=== PATIENT | female | born 1970 | race Caucasian/White ===

== ENCOUNTER 2018-02-20 07:31 | Day surgery (SDC) | payer OTHER ==
[2018-02-19 14:12] VITALS: BMI 48.9
[2018-02-20] MEDS ORDERED: Oxymetazoline HCl 0.05% ( 15 ML ) ONE ×2 (08:23→09:10)
[2018-02-20] MEDS ORDERED: Bacitracin Zinc Ointment 30 gm TUBE ONE (09:10)
[2018-02-20] MEDS ORDERED: Lidocaine 1% w/Epinephrine 1:100K 30 ML VIAL ONE (09:10)
[2018-02-20] MEDS ORDERED: Albuterol Sulfate HFA (OR ONLY) ONE (09:36)
[2018-02-20] MEDS ORDERED: Fentanyl 100 MCG/2 ML VIAL ONE ×3 (09:41→11:05)
[2018-02-20] MEDS ORDERED: Hydrocodone-Acetamin 15 ML UDCUP ONE (12:54)
[2018-02-20] MEDS ORDERED: Labetalol HCl 100 MG/20 ML VIAL ONE (14:41)
[2018-02-20] MEDS ORDERED: Dexamethasone 20 MG/5 ML VIAL ONE (14:41)
[2018-02-20] MEDS ORDERED: Lidocaine 1% PF 5 ML VIAL ONE (14:41)
[2018-02-20] MEDS ORDERED: Succinylcholine Chloride 20 MG/ML 10 ml SYRINGE FS ONE (14:41)
[2018-02-20] MEDS ORDERED: PROPOFOL 200 MG/20 ML VIAL ONE (14:41)
--- NOTE | 2018-02-21 10:00 | OP ---
DATE OF PROCEDURE: 02/23/2018 PREOPERATIVE DIAGNOSES: 1. Chronic rhinosinusitis. 2. Nasal septal deviation. 3. Bilateral inferior turbinate hypertrophy. 4. Nasal obstruction. POSTOPERATIVE DIAGNOSES: 1. Chronic rhinosinusitis. 2. Nasal septal deviation. 3. Bilateral inferior turbinate hypertrophy. 4. Nasal obstruction. PROCEDURES: 1. Bilateral endoscopic sinus surgery, total ethmoidectomies. 2. Bilateral endoscopic sinus surgery, maxillary antrostomies. 3. Bilateral endoscopic sinus surgery, frontal sinusotomy. 4. Bilateral endoscopic sinus surgery, sphenoidotomies. 5. Nasal septoplasty. 6. Bilateral inferior turbinate submucosal resection. SURGEON: Hu Capellan M.D. ESTIMATED BLOOD LOSS: 50 mL. COMPLICATIONS: None. ANESTHESIA: GETA. PROCEDURE IN DETAIL: Patient was taken to the operating room and placed supine on the table. General endotracheal anesthesia was obtained by the Anesthesia staff. Tube was secured in the left lower lip . Patient was then placed in the beach chair position, and Afrin pledgets were placed in the nasal ca vity. Injections of 1% lidocaine with 1:100,000 epinephrine were made into the nasal septum as well a s the inferior turbinates. Patient was then prepped and draped in standard surgical fashion for nasal surgery. Following this, the Afrin pledgets were removed. A [place] incision was made on the left na jeffery septum. Submucoperichondrial dissection was performed. The deviated portions of the septum includ ed portions of the cartilage and the bony septum. These isolated areas were removed using three cutti ng rongeurs. There was noted to be a large dorsal and caudal strut, left intact for support of the no se. The mucoperichondrial flaps were then reapproximated using a 4-0 gut stitch. Any straight pieces of cartilage were crushed prior to this and placed between the mucoperichondrial flaps. Following thi s, the inferior turbinates were then punctured with a submucosal coblation wand, and submucosal cobla tions were performed of multiple areas of the inferior portion of the anterior inferior turbinate. Please note the patient's submucosal microdebrider was submucosally resected the anterior and inferio r portions of the inferior turbinates bilaterally. Following this, inferior turbinates were then lat erally fractured with a [place] elevator. Following this, the 0 degree endoscope was advanced in the n negro cavity and the middle turbinate was identified bilaterally and was gently medialized using a [place] er elevator. Following this, the uncinate process was noted to be fairly displaced and very atrophic was anteriorly fractured with a ball-ended probe bilaterally. The uncinate process was then removed using a straight microdebrider and upbiting [place] forceps. Following this, the natural maxillar y ostia were then identified and was gently widened using the ball-ended probe. Following this, the natural maxillary sinus ostia was then widened bilaterally using the 0 degree microdebrider and strai ght [place] forceps. Following this, the ethmoidal bulla was identified and was punctured on its m edial and inferior aspect and was removed using the microdebrider and upbiting [place] forceps. Fo llowing this, the grand lamella was identified and was punctured using the 0 degree microdebrider int o the posterior ethmoidal cells. Working from posterior to anterior, the ethmoidal cells were opened in a mucosal-sparing technique. Following this, the sphenoid sinus ostia was approached through the previous ethmoidectomies where the attachment of the superior turbinate was identified as it economics analyst d to the posterior nasal wall just staying medial and inferior to this attachment created using the 0 degree microdebrider. The sphenoid ostia were then widened medially and inferiorly using the microd ebrider bilaterally. Following this, the 45-degree scope and the 40-degree microdebrider blade were then used to further open the frontal recess cells and expose the frontal sinus ostia. The frontal s inus ostia were then widened bilaterally using the curved microdebrider. Following this, the nasal c avity was irrigated. Mirapex were placed. Mcclelland splints were placed and secured. The patient chanell ated the procedure well.
== END 2018-02-20 13:48 | disposition home or self-care (01) ==
LOC: SDC 07:31
PROVIDERS: ATTEND Otolaryngology Plastic Surgery within the Head & Neck
PROC: 09BM8ZZ Excision of Nasal Septum, Via Natural or Artificial Opening Endoscopic (ICD-10-PCS; principal; 2018-02-20)
PROC: 09TV8ZZ Resection of Left Ethmoid Sinus, Via Natural or Artificial Opening Endoscopic (ICD-10-PCS; principal; 2018-02-20)
PROC: 09TU8ZZ Resection of Right Ethmoid Sinus, Via Natural or Artificial Opening Endoscopic (ICD-10-PCS; principal; 2018-02-20)
DX: J32.4 Chronic pansinusitis (principal); J34.2 Deviated nasal septum; J34.3 Hypertrophy of nasal turbinates
CPT/HCPCS: 85014; 96374; 96376; J1100; J2001; J2704; J3010

== ENCOUNTER 2018-11-17 19:23 | Emergency (ER) | payer MEDICAID, OTHER ==
[2018-11-17] MEDS ORDERED: HYDROcodone/Acetaminophen 5/325 mg Tablet ONE (20:39)
== END 2018-11-17 20:47 | disposition home or self-care (01) ==
LOC: ERS 19:23
DX: K02.9 Dental caries, unspecified (principal); K03.81 Cracked tooth; K03.2 Erosion of teeth; J45.909 Unspecified asthma, uncomplicated; F32.9 Major depressive disorder, single episode, unspecified
CPT/HCPCS: 99282

== ENCOUNTER 2018-12-30 14:50 | Emergency (ER) | payer MEDICAID ==
[2018-12-30] MEDS ORDERED: Ondansetron PF 4 MG/2 ML Vial ONE ×2 (15:49→17:46)
[2018-12-30] MEDS ORDERED: Morphine 4 MG/ML VIAL ONE ×2 (15:49→17:45)
[2018-12-30] MEDS ORDERED: Pantoprazole 40 MG VIAL ONE (15:49)
[2018-12-30 16:12] LABS: #Basophils 0.1 thou/uL (0.0-0.2); #Eosinphils 0.6 thou/uL (0.0-0.7); #Lymphocytes 3.5 thou/uL (1.20-3.40); #Monocytes 0.7 thou/uL (0.11-0.59); #Neutrophils 5.6 thou/uL (1.40-6.50); %Basophils 0.7 % (0.0-1.0); %Lymphocytes 33.3 % (21.0-51.0); %Neutrophils 53.1 % (42.0-75.0); Hemoglobin 15.2 g/dL (12.0-16.0); Mean Corpuscular HGB CONC 35.6 g/dL (32.0-36.0); Mean Corpuscular Hemoglobin 28.8 pg (27.0-31.0); Mean Corpuscular Volume 80.9 fL (78.0-98.0); Mean Platelet Volume 7.2 fL (7.4-10.4); Platelet Count 377 thou/uL (130-400); RBC Distribution Width 11.8 % (11.5-14.5); Red Blood Cell (RBC) Count 5.28 mill/uL (4.20-5.40); White Blood Cell (WBC) Count 10.6 thou/uL (4.8-10.8)
[2018-12-30 16:21] LABS: Bacteria/HPF None Seen HPF (None Seen); Bilirubin Negative (Negative); Blood, Urine Negative (Negative); Clarity Clear (Clear); Glucose, Urine (Dipstick) Greater than 1000 mg/dL (Negative); Leukocyte Negative Leu/uL (Negative); Nitrite Negative (Negative); Protein, Urine (Dipstick) 70 mg/dL (Neg-Trace); Squamous Epithelial 0-3 HPF (0-3); Urobilinogen Normal mg/dL (Less than 2)
[2018-12-30 16:33] LABS: ALT (SGPT) 37 U/L (8-55); AST (SGOT) 22 U/L (5-34); Albumin 4.6 g/dL (3.5-5.0); Alkaline Phosphatase 151 U/L (40-150); Anion Gap 17 mmol/L (10-20); BUN (Urea Nitrogen) 8 mg/dL (7.0-18.7); Bilirubin, Total 0.5 mg/dL (0.2-1.2); CK (CPK) 112 U/L (29-168); Calc. Creatinine Clearance 0 mL/min (70-130); Calcium 9.7 mg/dL (7.8-10.44); Carbon Dioxide 22 mmol/L (22-29); Chloride 97 mmol/L (98-107); Estimated GFR-MDRD 72; Globulin 3.2 g/dL (2.4-3.5); Glucose 328 mg/dL (70-105); Lipase 31 U/L (8-78); Potassium 3.6 mmol/L (3.5-5.1); Protein, Total 7.8 g/dL (6.0-8.3); Sodium 132 mmol/L (136-145)
--- NOTE | 2018-12-30 16:37 | CT ---
CT abdomen and pelvis with IV contrast HISTORY: Abdomen pain. FINDINGS: Lung bases are clear. Gallbladder is surgically absent. Liver is diffusely hypodense. Dystr ophic calcification at the anterior margin of the spleen. No evidence of bowel obstruction or inflammation. Nonspecific lymph nodes throughout the retroperitoneum. Urinary bladder is decompressed . IMPRESSION: No acute abnormalities are demonstrated to explain abdomen pain. Hepatic steatosis.
[2018-12-30] MEDS ORDERED: ISOVUE-370 76%-LOCM 1 ML ONE (17:06)
[2018-12-30] MEDS ORDERED: Metoclopramide 10 MG/10 ML UDCUP ONE (17:46)
[2018-12-30] MEDS ORDERED: diphenhydrAMINE 12.5 MG/5 ML UDCUP ONE (17:46)
[2018-12-30] MEDS ORDERED: diphenhydrAMINE 50 MG/ML VIAL ONE (17:47)
[2018-12-30] MEDS ORDERED: Metoclopramide HCl 10 MG/2 ML VIAL ONE (17:47)
== END 2018-12-30 18:42 | disposition home or self-care (01) ==
LOC: ERS 14:50
DX: R10.9 Unspecified abdominal pain (principal); R10.811 Right upper quadrant abdominal tenderness; E11.9 Type 2 diabetes mellitus without complications; J45.909 Unspecified asthma, uncomplicated; F41.9 Anxiety disorder, unspecified; F32.9 Major depressive disorder, single episode, unspecified; Z79.1 Long term (current) use of non-steroidal anti-inflammatories (NSAID)
CPT/HCPCS: 74177; 80053; 81003; 81015; 82550; 83690; 85025; 87086; 93005; 96361; 96365; 96375; 96376; C9113; J1200; J2270; J2405; J2765; Q0163; Q9966

== ENCOUNTER 2019-01-30 09:38 | Emergency (ER) | payer MEDICAID, OTHER ==
[2019-01-30 10:14] LABS: #Basophils 0.1 thou/uL (0.0-0.2); #Eosinphils 0.4 thou/uL (0.0-0.7); #Lymphocytes 2.5 thou/uL (1.20-3.40); #Monocytes 0.5 thou/uL (0.11-0.59); #Neutrophils 4.5 thou/uL (1.40-6.50); %Basophils 0.7 % (0.0-1.0); %Eosinophils 5.5 % (0.0-10.0); %Lymphocytes 31.8 % (21.0-51.0); %Monocytes 6.1 % (0.0-10.0); Hemoglobin 15.1 g/dL (12.0-16.0); Mean Corpuscular HGB CONC 35.5 g/dL (32.0-36.0); Mean Corpuscular Hemoglobin 28.6 pg (27.0-31.0); Mean Corpuscular Volume 80.6 fL (78.0-98.0); Mean Platelet Volume 7.6 fL (7.4-10.4); Platelet Count 300 thou/uL (130-400); RBC Distribution Width 11.8 % (11.5-14.5); Red Blood Cell (RBC) Count 5.28 mill/uL (4.20-5.40)
[2019-01-30 10:32] LABS: ALT (SGPT) 33 U/L (8-55); AST (SGOT) 21 U/L (5-34); Albumin 4.1 g/dL (3.5-5.0); Alkaline Phosphatase 121 U/L (40-110); Anion Gap 11 mmol/L (10-20); BUN (Urea Nitrogen) 7 mg/dL (7.0-18.7); Bilirubin, Total 0.3 mg/dL (0.2-1.2); Calc. Creatinine Clearance 0 mL/min (70-130); Calcium 9.1 mg/dL (7.8-10.44); Carbon Dioxide 25 mmol/L (22-29); Chloride 99 mmol/L (98-107); Estimated GFR-MDRD 65; Globulin 2.9 g/dL (2.4-3.5); Glucose 424 mg/dL (70-105); Potassium 4.3 mmol/L (3.5-5.1); Sodium 131 mmol/L (136-145)
== END 2019-01-30 12:02 | disposition home or self-care (01) ==
LOC: ERS 09:38
DX: E11.65 Type 2 diabetes mellitus with hyperglycemia (principal); K08.89 Other specified disorders of teeth and supporting structures; J45.909 Unspecified asthma, uncomplicated; F41.9 Anxiety disorder, unspecified; F32.9 Major depressive disorder, single episode, unspecified; Z79.899 Other long term (current) drug therapy
CPT/HCPCS: 36415; 36416; 80053; 85025; 96360; 96361

== ENCOUNTER 2019-03-13 15:09 | Outpatient (CLI) | payer OTHER ==
--- NOTE | 2019-03-13 15:29 | RAD ---
PA AND LATERAL CHEST: HISTORY: Cough. FINDINGS: Heart size and mediastinum within normal limits. Some infiltrative change in the more lateral segmen t of the right middle lobe. IMPRESSION: Right middle lobe lateral segment infiltrate. POS: TPC
== END 2019-03-13 15:10 | disposition home or self-care (01) ==
LOC: RAD-FRANK 15:09
PROVIDERS: ATTEND Internal Medicine
DX: J20.9 Acute bronchitis, unspecified (principal)
CPT/HCPCS: 71046

== ENCOUNTER 2020-06-09 11:34 | Outpatient (CLI) | payer OTHER ==
--- NOTE | 2020-06-09 11:55 | RAD ---
EXAM: CHEST TWO VIEWS 06/09/2020 11:52 AM HISTORY: Abnormal lung sounds concern for pneumonia COMPARISON: Prior exam dated March 13, 2019 FINDINGS: Lungs: No acute airspace consolidation. Heart: Normal in size and contour. Pulmonary Vessels: Normal. Costophrenic Angles: Clear. Pneumothorax: None. Osseous Structures: Intact. Additional Findings: None. IMPRESSION: No significant acute intrathoracic disease.
== END 2020-06-09 11:35 | disposition home or self-care (01) ==
LOC: BICRAD 11:34
PROVIDERS: ATTEND Nurse Practitioner Family
DX: R09.89 Other specified symptoms and signs involving the circulatory and respiratory systems (principal)
CPT/HCPCS: 71046

== ENCOUNTER 2020-07-29 13:14 | Outpatient (CLI) | payer OTHER | END 2020-07-29 13:15 | disposition home or self-care (01) | LOC: RAD-FRANK 13:14 | PROVIDERS: ATTEND Nurse Practitioner Family | DX: M25.512 Pain in left shoulder (principal); R07.81 Pleurodynia ==

== ENCOUNTER 2020-10-12 12:20 | Emergency (ER) | payer OTHER ==
[2020-10-12 12:53] LABS: #Eosinphils 0.3 thou/uL (0.0-0.7); #Lymphocytes 2.3 thou/uL (1.20-3.40); #Monocytes 0.6 thou/uL (0.11-0.59); #Neutrophils 6.2 thou/uL (1.40-6.50); %Basophils 0.3 % (0.0-1.0); %Eosinophils 3.7 % (0.0-10.0); %Lymphocytes 24.5 % (21.0-51.0); %Monocytes 6.3 % (0.0-10.0); %Neutrophils 65.2 % (42.0-75.0); Hemoglobin 14.2 g/dL (12.0-16.0); Mean Corpuscular HGB CONC 34.6 g/dL (32.0-36.0); Mean Corpuscular Hemoglobin 28.4 pg (27.0-31.0); Mean Corpuscular Volume 81.9 fL (78.0-98.0); Mean Platelet Volume 7.1 fL (7.4-10.4); Platelet Count 335 thou/uL (130-400); Red Blood Cell (RBC) Count 5.01 mill/uL (4.20-5.40); White Blood Cell (WBC) Count 9.5 thou/uL (4.8-10.8)
[2020-10-12 13:04] LABS: ALT (SGPT) 27 U/L (8-55); AST (SGOT) 16 U/L (5-34); Albumin 3.8 g/dL (3.5-5.0); Alkaline Phosphatase 115 U/L (40-110); Anion Gap 12 mmol/L (10-20); BUN (Urea Nitrogen) 9 mg/dL (7.0-18.7); Bilirubin, Total 0.5 mg/dL (0.2-1.2); Calc. Creatinine Clearance 0 mL/min (70-130); Calcium 8.4 mg/dL (7.8-10.44); Carbon Dioxide 28 mmol/L (22-29); Chloride 98 mmol/L (98-107); Globulin 2.7 g/dL (2.4-3.5); Glucose 408 mg/dL (70-105); Protein, Total 6.5 g/dL (6.0-8.3); Sodium 134 mmol/L (136-145)
[2020-10-12 14:31] LABS: Bilirubin Negative (Negative); Blood, Urine Negative (Negative); Glucose, Urine (Dipstick) >=1000 mg/dL (Negative); Ketone, Urine 15 mg/dL (Negative); Leukocyte Negative (Negative); Nitrite Negative (Negative); Protein, Urine (Dipstick) Negative (Neg-Trace); Specific Gravity, Urine 1.025 (1.005-1.030); Urobilinogen 0.2 mg/dL (Less than 2)
[2020-10-12 14:38] LABS: Clarity Clear (Clear)
[2020-10-12] MEDS ORDERED: Metoclopramide HCl 10 MG/2 ML VIAL ONE (14:43)
[2020-10-12] MEDS ORDERED: diphenhydrAMINE 50 MG/ML VIAL ONE (14:43)
[2020-10-12 14:44] LABS: Bacteria/HPF None Seen HPF (None Seen); RBC/HPF None Seen HPF (0-3); Squamous Epithelial None Seen HPF (0-3); WBC/HPF None Seen HPF (0-3)
== END 2020-10-12 15:59 | disposition home or self-care (01) ==
LOC: ERS 12:20
DX: E11.65 Type 2 diabetes mellitus with hyperglycemia (principal); D32.9 Benign neoplasm of meninges, unspecified; J45.909 Unspecified asthma, uncomplicated; Z79.899 Other long term (current) drug therapy
CPT/HCPCS: 36415; 36416; 70450; 80053; 81003; 82010; 85025; 96365; 96375; J1200; J2765

== ENCOUNTER 2021-01-12 14:05 | Emergency (ER) | payer OTHER ==
[2021-01-12 14:54] LABS: #Eosinphils 0.2 thou/uL (0.0-0.7); #Lymphocytes 2.3 thou/uL (1.20-3.40); #Monocytes 0.4 thou/uL (0.11-0.59); %Basophils 0.5 % (0.0-1.0); %Eosinophils 3.9 % (0.0-10.0); %Lymphocytes 46.3 % (21.0-51.0); %Monocytes 8.8 % (0.0-10.0); %Neutrophils 40.5 % (42.0-75.0); Hemoglobin 15.4 g/dL (12.0-16.0); Mean Corpuscular HGB CONC 35.1 g/dL (32.0-36.0); Mean Corpuscular Hemoglobin 28.5 pg (27.0-31.0); Mean Platelet Volume 7.3 fL (7.4-10.4); Platelet Count 287 thou/uL (130-400); Red Blood Cell (RBC) Count 5.42 mill/uL (4.20-5.40)
[2021-01-12 15:21] LABS: ALT (SGPT) 32 U/L (8-55); AST (SGOT) 16 U/L (5-34); Albumin 4.1 g/dL (3.5-5.0); Alkaline Phosphatase 97 U/L (40-110); Anion Gap 15 mmol/L (10-20); BUN (Urea Nitrogen) 8 mg/dL (7.0-18.7); Bilirubin, Total 0.4 mg/dL (0.2-1.2); Calc. Creatinine Clearance 0 mL/min (70-130); Calcium 9.3 mg/dL (7.8-10.44); Carbon Dioxide 17 mmol/L (22-29); Chloride 108 mmol/L (98-107); Globulin 3.2 g/dL (2.4-3.5); Glucose 198 mg/dL (70-105); Potassium 3.3 mmol/L (3.5-5.1); Protein, Total 7.3 g/dL (6.0-8.3); Sodium 137 mmol/L (136-145)
[2021-01-12 17:24] LABS: Bilirubin Negative (Negative); Blood, Urine Negative (Negative); Clarity Clear (Clear); Glucose, Urine (Dipstick) Normal (Negative); Ketone, Urine Trace mg/dL (Negative); Leukocyte Negative Leu/uL (Negative); Nitrite Negative (Negative); Protein, Urine (Dipstick) Negative (Neg-Trace); Specific Gravity, Urine 1.003 (1.002-1.036); Urobilinogen Normal mg/dL (Less than 2)
[2021-01-13 02:02] LABS: SARS-CoV-2 PCR by NAA DETECTED (NotDetected)
== END 2021-01-12 17:00 | disposition home or self-care (01) ==
LOC: ERS 14:05
DX: U07.1 COVID-19 (principal); R55 Syncope and collapse; E11.9 Type 2 diabetes mellitus without complications; J45.909 Unspecified asthma, uncomplicated
CPT/HCPCS: 36415; 70450; 71045; 80053; 81003; 84484; 85025; 93005; U0003; U0005

== ENCOUNTER 2021-04-05 14:54 | Emergency (ER) | payer OTHER ==
[2021-04-05 15:30] LABS: #Basophils 0.1 thou/uL (0.0-0.2); #Eosinphils 0.5 thou/uL (0.0-0.7); #Lymphocytes 2.1 thou/uL (1.20-3.40); #Monocytes 0.6 thou/uL (0.11-0.59); #Neutrophils 3.4 thou/uL (1.40-6.50); %Basophils 0.9 % (0.0-1.0); %Eosinophils 6.9 % (0.0-10.0); %Lymphocytes 32.6 % (21.0-51.0); %Monocytes 8.5 % (0.0-10.0); %Neutrophils 51.1 % (42.0-75.0); Hemoglobin 14.9 g/dL (12.0-16.0); Mean Corpuscular HGB CONC 35.3 g/dL (32.0-36.0); Mean Corpuscular Hemoglobin 29.4 pg (27.0-31.0); Mean Corpuscular Volume 83.2 fL (78.0-98.0); Mean Platelet Volume 7.2 fL (7.4-10.4); Platelet Count 293 thou/uL (130-400); Red Blood Cell (RBC) Count 5.07 mill/uL (4.20-5.40); White Blood Cell (WBC) Count 6.6 thou/uL (4.8-10.8)
[2021-04-05] MEDS ORDERED: Magnesium 2 GM/50 ML BAG (IN WATER) ONE (15:44)
[2021-04-05 15:48] LABS: ALT (SGPT) 26 U/L (8-55); Albumin 3.8 g/dL (3.5-5.0); Alkaline Phosphatase 119 U/L (40-110); Anion Gap 14 mmol/L (10-20); BUN (Urea Nitrogen) 9 mg/dL (7.0-18.7); Bilirubin, Total 0.4 mg/dL (0.2-1.2); Calc. Creatinine Clearance 0 mL/min (70-130); Calcium 9.3 mg/dL (7.8-10.44); Carbon Dioxide 17 mmol/L (22-29); Chloride 105 mmol/L (98-107); Potassium 4.2 mmol/L (3.5-5.1); Protein, Total 6.8 g/dL (6.0-8.3); Sodium 132 mmol/L (136-145)
[2021-04-05 15:51] LABS: AST (SGOT) 15 U/L (5-34)
[2021-04-05 15:57] LABS: Glucose 564 mg/dL (70-105)
[2021-04-05] MEDS ORDERED: Albuterol 200 PUFF (6.7GM INHALER) ONE (16:11)
[2021-04-05 16:22] LABS: Actual Bicarbonate (HCO3v) 17 mEq/L (22-28); Analyzer IN Cardio ER; Base Excess -7.2 mEq/L (-2.0 to +3.0); Calcium, Ionized (venous) 1.14 mmol/L (1.16-1.32); Chloride (VBG) 103 mmol/L (98-106); Hemoglobin (Hb) 15.1 g/dL (11.7-16.0); Potassium (VBG) 3.81 mmol/L (3.70-5.30); Sodium 132.9 mmol/L (133-146); pH (venous) 7.36 (7.32-7.43)
[2021-04-05 17:05] LABS: SARS-CoV-2 NAA Rapid Test Not Detected (NotDetected)
== END 2021-04-05 17:46 | disposition home or self-care (01) ==
LOC: ERS 14:54
DX: J45.901 Unspecified asthma with (acute) exacerbation (principal); J18.9 Pneumonia, unspecified organism; E11.65 Type 2 diabetes mellitus with hyperglycemia; Z20.822 Contact with and (suspected) exposure to COVID-19; Z79.4 Long term (current) use of insulin
CPT/HCPCS: 0240U; 36415; 71045; 80053; 82010; 82805; 84484; 85025; 93005; 94664; 96365; J3475

== ENCOUNTER 2022-01-04 11:00 | Outpatient (CLI) | payer OTHER | END 2022-01-04 11:01 | disposition home or self-care (01) | LOC: BICCT 11:00 | PROVIDERS: ATTEND Specialist | DX: R43.8 Other disturbances of smell and taste (principal) ==